=== PATIENT | male | born 1980 | race Caucasian/White ===

== ENCOUNTER 2018-05-06 22:37 | Emergency (ER) | payer BC, OTHER ==
[2018-05-06 23:07] VITALS: BP 147/104
[2018-05-07] MEDS ORDERED: Fluorescein 0.6 MG Ophth Strip EYERT ONE (00:19)
--- NOTE | 2018-05-07 00:34 | EDM.PDOC ---
ED HPI GENERAL MEDICAL PROBLEM - General Chief Complaint: Chemical Exposure Stated Complaint: CHEMICAL IN EYE Time Seen by Provider: 05/07/18 00:13 Source of Information: Reports: Patient, Family () History Limitations: Reports: No Limitations - History of Present Illness INITIAL COMMENTS - FREE TEXT/NARRATIVE: The patient states that he accidentally splashed Propimax EC fungicide into his right eye around 20:30 tonight, while at home. He states that he was wearing contact lenses in both of his eyes at the time. He states that his right eye immediately started stinging. He immediately rinsed his eye for a few minutes with a garden hose, then went inside and rinsed his eye for several more minutes under the tap. During the second rinsing, he removed both of his contact lenses and threw them out. He estimates the total amount of time he rinsed his eyes at home was about 15 minutes. Here in the ED, the patient received 2 drops of proparacaine, then had a Zuhair lens placed, followed by 10 minutes of irrigation with normal saline. He states that his right eye is feeling much better now. No prior right eye injury. The patient does not have a PCP. Right Eye Pain Score (Numeric/FACES): 3 - Related Data Allergies Allergy/AdvReac Type Severity Reaction Status Date / Time No Known Allergies Allergy Verified 05/06/18 23:07 Home Meds: Home Meds Omeprazole Magnesium [Prilosec Otc] 20 mg PO DAILY 12/21/16 [History] Adalimumab [Humira] 0 mg INJECT ASDIRECTED 05/06/18 [History] Ketorolac [Acular 0.5% Ophth Soln] 1 drop EYERT Q6H PRN #1 bottle 05/07/18 [Rx] Past Medical History Gastrointestinal History: Reports: GERD Genitourinary History: Reports: Renal Calculus Musculoskeletal History: Reports: Other (See Below) (Psoriatic arthritis) Dermatologic History: Reports: Psoriasis Social & Family History - Tobacco Use Smoking Status *Q: Never Smoker - Caffeine Use Caffeine Use: Reports: Coffee - Alcohol Use Alcohol Use History: Yes Alcohol Use Frequency: Socially - Recreational Drug Use Recreational Drug Use: No - Living Situation & Occupation Living situation: Reports: , with Spouse, with Family (2 sons) Occupation: Employed ([employer]) ED ROS GENERAL - Review of Systems Review Of Systems: ROS reveals no pertinent complaints other than HPI. ED EXAM GENERAL W FULL EYE - Physical Exam Exam: See Below Exam Limited By: No Limitations General Appearance: Alert, WD/WN, No Apparent Distress Eyelids: Bilateral: Normal Appearance Conjunctiva & Sclera: Right: Injected, Left: Normal Appearance Cornea Exam: Right: Examined with Flourescein (No corneal abrasion or ulcer), Bilateral: Normal Appearance Extraocular Movements: Bilateral: Intact Pupils: Normal Accommodation Pupillary Size: Bilateral: 5 mm Pupillary Reaction: Bilateral: Brisk Anterior Chamber: Bilateral: Normal Appearance Course - Vital Signs Last Recorded V/S: Last Vital Signs Temp 36.6 C 05/06/18 23:00 Pulse 78 05/06/18 23:00 Resp 18 05/06/18 23:00 BP 147/104 H 05/06/18 23:00 Pulse Ox 95 05/06/18 23:00 - Orders/Labs/Meds Meds: Medications Discontinued Medications Generic Name Dose Route Start Last Admin Trade Name Freq PRN Reason Stop Dose Admin Fluorescein Sodium 0.6 mg 05/07/18 00:19 05/07/18 00:20 Ful-Aye EYERT 05/07/18 00:20 0.6 mg ONETIME ONE Administration - Re-Assessments/Exams Free Text/Narrative Re-Assessment/Exam: 05/07/18 00:28 The patient accidentally splashed fungicide into his right eye while wearing contact lenses. He removed his contact lenses during his second rinse at home, then received an additional Zuhair lens rinse with normal saline for 10 minutes here in the ED. His right eye is feeling much better. Following the rinse, I instilled fluorescein dye, and found no evidence of a corneal abrasion or corneal ulcer. I will discharge the patient home with an electronic prescription for Acular, in case his eye is not feeling completely back to normal by the morning. Departure - Departure Time of Disposition: 00:29 Disposition: Home, Self-Care 01 Condition: Good Clinical Impression: Chemical conjunctivitis of right eye - Discharge Information Prescriptions: Ketorolac [Acular 0.5% Ophth Soln] 1 drop EYERT Q6H PRN #1 bottle PRN Reason: Pain Instructions: Chemical Conjunctivitis, Adult, [id number] Referrals: PCP,None [Primary Care Provider] - Forms: ED Department Discharge Additional Instructions: You were seen in the emergency room after accidentally splashing fungicide into your right eye. In addition to the rinsing of your right eye at home, you received additional rinse in the ER. On examination, there is no corneal abrasion or corneal ulcer. If your right eye is still uncomfortable in the morning, a prescription for the pain reliever Acular has been electronically sent to the [facility], located in the [employer]cery store. Instill 1 drop into your right eye every 6 hours , as needed for discomfort. If you continue to have discomfort beyond tomorrow, please follow-up with and eye doctor for reevaluation. If any other problems, please do not hesitate to return to the ER.
== END 2018-05-07 00:40 | disposition home or self-care (01) ==
LOC: JD.ED 22:37
DX: H10.211 Acute toxic conjunctivitis, right eye (principal); K21.9 Gastro-esophageal reflux disease without esophagitis; Z79.899 Other long term (current) drug therapy
CPT/HCPCS: 99283; 99284

== ENCOUNTER 2025-02-21 11:36 | Emergency (ER) | payer OTHER ==
[2025-02-21] MEDS ORDERED: Sodium Chloride 0.9% 10 ML Syringe FLUSH PRN (12:56)
[2025-02-21 13:27] LABS: BASOPHILS ABSOLUTE AUTO 0.1 K/mm3 (0.0-0.2); BASOPHILS PERCENT AUTO 0.6 % (0.0-1.0); EOSINOPHILS ABSOLUTE AUTO 0.1 K/mm3 (0.0-0.4); HEMATOCRIT 47.7 % (42.0-52.0); HEMOGLOBIN 16.7 gm/dl (14.0-18.0); IMMATURE GRAN ABSOLUTE AUTO 0.02 K/mm3 (0.00-0.05); IMMATURE GRAN PERCENT AUTO 0.2 % (0.0-0.4); LYMPHOCYTES ABSOLUTE AUTO 3.1 K/mm3 (1.0-4.8); LYMPHOCYTES PERCENT AUTO 34.2 % (24.0-44.0); MEAN CORPUSCULAR HEMOGLOBIN 30.5 pg (28.0-32.0); MEAN PLATELET VOLUME 11.2 fl (9.4-12.4); MONOCYTES ABSOLUTE AUTO 0.5 K/mm3 (0.0-0.8); NEUTROPHILS ABSOLUTE AUTO 5.2 K/mm3 (1.8-7.7); PLATELET COUNT,PLT 200 K/mm3 (150-400); RED BLOOD CELL COUNT 5.48 M/mm3 (4.52-5.90); WHITE BLOOD CELL COUNT,WBC 8.97 K/mm3 (3.9-11.3)
[2025-02-21 13:39] LABS: HEMOGLOBIN A1C 8.1 %
[2025-02-21 13:53] LABS: A/G RATIO 1.2 (1-2); ALANINE AMINOTRANSFERASE,ALT 139 U/L (16-63); ALBUMIN 3.9 g/dl (3.4-5.0); ALKALINE PHOSPHATASE 106 U/L (46-116); ASPARTATE AMNIOTRANSFERASE,AST 58 U/L (15-37); BILIRUBIN TOTAL 0.5 mg/dL (0.2-1.0); BLOOD UREA NITROGEN,BUN 11 mg/dL (7-18); BUN/CREATININE RATIO 12.2 (14-18); C-REACTIVE PROTEIN 0.13 mg/dL (<0.30); CARBON DIOXIDE,CO2 27 mEq/L (21-32); CHLORIDE,CL 103 mEq/L (98-107); CREATININE 0.9 mg/dL (0.7-1.3); EST CRCL DRUG DOSING (CG) 111.56 mL/min; ESTIMATED GFR 108 mL/min (>60); GLUCOSE RANDOM 132 mg/dL (70-99); MAGNESIUM 1.7 mg/dL (1.8-2.4); PROTEIN TOTAL,TP 7.1 g/dl (6.4-8.2); SODIUM,NA 137 mEq/L (136-145); TROPONIN I HIGH SENSITIVITY < 4 pg/mL (<=76)
[2025-02-21] MEDS: amLODIPine 5 MG Tab PO ONE (14:53)
[2025-02-21 14:54] VITALS: BP 152/114
[2025-02-21 15:16] VITALS: PULSE 94
== END 2025-02-21 15:00 | disposition home or self-care (01) ==
LOC: JD.ED 11:36
DX: I10 Essential (primary) hypertension (principal); E11.9 Type 2 diabetes mellitus without complications; Z79.899 Other long term (current) drug therapy
CPT/HCPCS: 36415; 70450; 80053; 83036; 83735; 84484; 85025; 86140; 93005; 99284; A9270; 93010